=== PATIENT | female | born 1955 | race Caucasian/White ===

== ENCOUNTER 2016-09-07 14:54 | Emergency (ER) | payer BC ==
[2016-09-07 15:02] VITALS: BMI 28.3
--- NOTE | 2016-09-07 17:17 | DR.HTN ---
HPI - Time Seen Time seen: 17:10 - Primary Care Physician Primary Care Physician: BLAYNE CASTRO - Complaints Chief Complaint Doctors Comments: Patient complains of her blood pressure being elevated today at 206/105 at home with her being dizzy for the past 2-3 days. States has had problems with vertigo before and takes a pill for dizziness at times and gets light headed. States she has never had a CT of her head. states she is taking Metoprolol 50mg bid; Lisinopril 10mg; for her blood pressure from Dr. Torres in [place]. She has been having tightning in her head. She has a family history of heart disease with her father having problem at age 50. Chief Complaint:: PT C/O > B/P AND BEING DIZZY... - Reviewed Nurses Notes Reviewed: Yes - Source History Provided: Patient - Mode of Arrival Mode of Arrival: Ambulatory - Timing Onset of Chief Complaint: 09/07/16 - Severity What was the maximum recorded B/P?: 206/105 Severity: Mild - Context Circumstances: Spontaneous Onset History of: Hypertension Treatment of HTN Prior to Arrival: Taking meds as prescribed - Associated Signs and Symptoms HTN Associated Signs and Symptoms: Headache, Dizziness PMH - PMH Past Medical History: Yes Past Medical History: Hypertension Past Surgical History: Yes Past Surgical History Comment: LUMPECTOMY, PARTIAL HYSTERECTOMY, . - Family History History of Family Medical Conditions: Yes Family Medical History: Diabetes Mellitus Family Medical History Comment: HEART, DEMENTIA, - Social History Does patient currently use any type of tobacco product: No Have you used tobacco products in the last 12 months: No Type of Tobacco Use: None Does any household member use tobacco: No Alcohol Use: None Do you use any recreational Drugs:: No Lives With: Family Lives Where: Home - infectious screening In the last 2 months have you had wt loss of >10#?: NO Have you had fever, night sweats or hemotysis?: No Have you traveled outside the country in the last 6 months?: No Isolation: Standard ROS - Review of Systems Constitutional: No Symptoms Reported. negative: See HPI, Chills, Diaphoresis, Fever, Malaise, Weakness, Irritable, Fatigue, Loss of Appetite, Other Eyes: No Symptoms Reported ENTM: No Symptoms Reported. negative: See HPI, Ear Pain, Ear Discharge, Pulling on Ears, Hearing Loss, Nose Pain, Nose Discharge, Epistaxis, Nose Congestion, Mouth Pain, Mouth Swelling, Loose Teeth, Drooling, Throat Pain, Throat Swelling, Ear Foreign Body Respiratoy: No Symptoms Reported Cardiovascular: No Symptoms Reported. negative: See HPI, Chest Pain, Edema, Palpitations, Syncope, Cyanosis, Skin Mottling, Other Gastrointestinal/Abdominal: No Symptoms Reported. negative: See HPI, Abdominal Pain, Constipation, Diarrhea, Nausea, Vomiting, Food Intolerance, Other Genitourinary: No Symptoms Reported, Frequency. negative: See HPI, Discharge, Dysuria, Hematuria, Pain, Bleeding, Other Neurological: No Symptoms Reported, Dizziness. negative: See HPI, Anxiety, Depressed, Emotional Problems, Headache, Numbness, Paresthesia, Pre-existing Deficit, Seizure, Tingling, Tremors, Weakness, Problems Walking, Speech Problem , Other Musculoskeletal: No Symptoms Reported Integumentary: No Symptoms Reported. negative: See HPI, Change in Color, Change in Hair/Nails, Dryness, Lesions, Lumps, Rash, Itching, Wound, Bruises, Juandice, Other Hematologic/Lymphatic: No Symptoms Reported Endocrine: No Symptoms Reported Psychiatric: No Symptoms Reported PE - Vital Signs Vitals: Pulse Rate 56 Respiratory Rate 22 Blood Pressure 166/91 O2 Sat by Pulse Oximetry 98 - General Limitations: No Limitations General Appearance: Alert, In Distress (mild) - Head Head Exam: Normal Inspection, Atraumatic, Normocephalic - Eyes Eye exam: Normal Appearance, PERRL, EOMI. negative: Scleral Icterus, Conjunctival Injection, Nystagmus, Miosis, Mydrasis, Periorbital Swelling, Periorbital Tenderness, Other Pupils: Regular, Round: Bilateral Sclera/Conjunctival: Normal Inspection: Bilateral - ENT ENT Exam: Normal Exam, Normal Oropharynx, Mucous Membranes Moist - Neck Neck Exam: Normal Inspection, Full ROM, Trachea Midline - Chest Chest Inspection: Normal Inspection, Symmetric Chest Wall Rise - Respiratory Respiratory Exam: Normal Lung Sounds Bilat Respiratory Exam: Bilateral Clear to Auscultation - Cardiovascular Cardiovascular Exam: Regular Rate, Normal Rhythm, Normal Heart Sounds - Abdominal Exam Abdominal Exam: Normal Inspection, Normal Bowel Sounds, Soft Abdominal Tenderness: negative: RUQ, RLQ, LUQ, LLQ, Epigastrium, Suprapubic, Diffuse, Mild, Moderate, Severe, Other - Extremities Extremities Exam: Normal Inspection, Full ROM, Tenderness, Normal Capillary Refill. negative: Edema, Joint Swelling, Calf Tenderness, Other - Back Back Exam: Normal Inspection, Full ROM. negative: Tenderness, (R) CVA Tenderness, (L) CVA Tenderness, Muscle Spasm, Paraspinal Tenderness, Vertebral Tenderness, Rashes, (R) Sciatic Notch Tenderness, (L) Sciatic Notch Tendern, (R ) Straight Leg Raise, (L) Straight Leg Raise, Other - Neurologic Neurological Exam: Alert, Oriented X3, CN II-XII Intact, Reflexes Normal. negative: Normal Gait (gait not tested) Patient Oriented To: Person, Place, Time Speech: Fluid Speech Cranial Nerve Exam: EOM Function (II, III, IV, ): Normal, Facial Sensation (V) : Normal, Facial Palsy (VII): Normal, Gag reflex (XI): Normal, Spinal Accessory Function (XI): Normal, Tongue Deviation: Normal Cerebellar Function: Normal Gait Motor Strength - LUE: 5/5 Motor Strength - RUE: 5/5 Motor Strength - LLE: 5/5 Upper Motor Neuron Exam: Babinski Sign: Normal Sensory Exam Upper Extremity: Light Touch: Normal, Pin Prick: Normal, Temperature: Normal, 2 Point Discrimination: Normal Sensory Exam Lower Extremity: Light Touch: Normal, Pin Prick: Normal, Temperature: Normal DTR: bicep (L): 3+, bicep (R): 3+, Patellar (L): 3+, patellar (R): 3+ - Psychiatric Psychiatric Exam: Normal Affect, Normal Mood - Skin Skin Exam: Warm, Dry, Intact, Normal Color. negative: Rash, Cyanosis, Diaphoresis, Erythema, Pallor, Mottled, Other ROR - Labs Reviewed Laboratory Results Reviewed?: Yes (All labs and x-ray results reviewed and discussed with patient) Result Diagrams: 09/07/16 17:20 09/07/16 17:20 Laboratory: WBC 5.7 X10^3/uL (3.6-10.0) 09/07/16 17:20 RBC 4.79 X10^6/uL (3.5-5.4) 09/07/16 17:20 Hgb 13.6 g/dL (12.0-16.0) 09/07/16 17:20 Hct 39.4 % (36.0-47.0) 09/07/16 17:20 MCV 82.2 fL (80.0-100.0) 09/07/16 17:20 MCH 28.3 pg (27.0-34.0) 09/07/16 17: MCHC 34.4 g/dL (33.0-35.0) 09/07/16 17:20 RDW 12.7 % (11.6-16.5) 09/07/16 17: Plt Count 271 X10^3/uL (150.0-450.0) 09/07/16 17:20 MPV 8.0 fL (7.4-11.0) 09/07/16 17:20 Neut % 61.4 % (42.0-75.0) 09/07/16 17: Lymph % 27.8 % (21.0-51.0) 09/07/16 17: Hopkins % 8.3 % (0.0-13.0) 09/07/16 17: Eos % 1.9 % (0.9-2.9) 09/07/16 17: Baso % 0.6 % (0.2-1.0) 09/07/16 17:20 Neut # 3.5 x10^3/uL (2.2-4.8) 09/07/16 17: Lymph # 1.6 X10^3/uL (1.3-2.9) 09/07/16 17:20 Hopkins # 0.5 x10^3/uL (0.3-0.8) 09/07/16 17:20 Eos # 0.1 x10^3/uL (0.0-0.2) 09/07/16 17:20 Baso # 0.0 X10^3/uL (0.0-0.1) 09/07/16 17: Absolute Nucleated RBC 0.0 /100WBC 09/07/16 17:20 INR Target Range - 09/07/16 17:20 INR 0.98 (0.8-1.3) 09/07/16 17:20 PTT 34.1 SECONDS (22.9-36.5) 09/07/16 17:20 PTT Comment - 09/07/16 17:20 Sodium 144 mmol/L (136-145) 09/07/16 17:20 Corrected Sodium TNP 09/07/16 17:20 Potassium 4.4 mmol/L (3.5-5.1) 09/07/16 17:20 Chloride 107 mmol/L (98-107) 09/07/16 17:20 Carbon Dioxide 30.2 mmol/L (21-32) 09/07/16 17:20 BUN 16 mg/dL (7-18) 09/07/16 17:20 Creatinine 0.81 mg/dL (0.55-1.02) 09/07/16 17:20 Est GFR (MDRD) Af Amer > 60 (>60) 09/07/16 17:20 Est GFR (MDRD) Non-Af > 60 (>60) 09/07/16 17:20 Glucose 97 mg/dL (65-99) 09/07/16 17:20 Calcium 9.5 mg/dL (8.5-10.1) 09/07/16 17:20 Corrected Calcium TNP 09/07/16 17:20 Magnesium 2.0 mg/dL (1.7-2.9) 09/07/16 17:20 Total Bilirubin 0.80 mg/dL (0.2-1.0) 09/07/16 17:20 AST 44 Units/L (15-37) H 09/07/16 17:20 ALT 93 Units/L (12-78) H 09/07/16 17:20 Alkaline Phosphatase 91 Units/L (46-116) 09/07/16 17:20 Creatine Kinase 67 Units/L (26-192) 09/07/16 17:20 CK-MB (CK-2) < 1.0 ng/mL (0-4.0) 09/07/16 17:20 CK/CKMB % Calc 1.5 % (<4) 09/07/16 17:20 Troponin I < 0.02 ng/mL (0-1.5) 09/07/16 17:20 Total Protein 7.6 g/dL (6.4-8.2) 09/07/16 17:20 Albumin 4.0 g/dL (3.4-5.0) 09/07/16 17:20 Globulin 3.6 g/dL (2.5-4.5) 09/07/16 17:20 Albumin/Globulin Ratio 1.1 Ratio (1.1-2.1) 09/07/16 17:20 - XRAY XRAY Interpreted by: Radiologist (CT head: No definit evidence of acute intracranial process. Moderate microvascular white matter ischemic changes) - EKG Rate: 55 Panacea: Normal Rhythm: SB Block: None Hypertrophy: None ST: Nonsp - Diagnosis Discharge Problem: Essential hypertension, Vertigo, Abnormal liver enzymes, Bradycardia - Discharge Plan Disposition: HOME, SELF-CARE Condition: Stable Prescriptions: Lisinopril [ZESTRIL *] 20 mg PO DAILY #30 tab Meclizine HCl [ANTIVERT 25 MG *] 25 mg PO TID PRN #30 tab PRN Reason: MOTION SICKNESS - Follow ups/Referrals Follow ups/Referrals: JAMES CISNEROS [Primary Care Provider] - 3 days - Instructions Instructions: Hypertension, Bradycardia
[2016-09-07 17:30] LABS: BASOPHILS % (AUTO) 0.6 % (0.2-1.0); EOSINOPHILS # (AUTO) 0.1 x10^3/uL (0.0-0.2); EOSINOPHILS % (AUTO) 1.9 % (0.9-2.9); HEMATOCRIT 39.4 % (36.0-47.0); HEMOGLOBIN 13.6 g/dL (12.0-16.0); LYMPHOCYTES # (AUTO) 1.6 X10^3/uL (1.3-2.9); LYMPHOCYTES % (AUTO) 27.8 % (21.0-51.0); MEAN CORPUSCULAR HEMOGLOBIN 28.3 pg (27.0-34.0); MEAN CORPUSCULAR HGB CONC 34.4 g/dL (33.0-35.0); MEAN CORPUSCULAR VOLUME 82.2 fL (80.0-100.0); MONOCYTES # (AUTO) 0.5 x10^3/uL (0.3-0.8); MONOCYTES % (AUTO) 8.3 % (0.0-13.0); NEUTROPHILS # (AUTO) 3.5 x10^3/uL (2.2-4.8); NEUTROPHILS % (AUTO) 61.4 % (42.0-75.0); PLATELET COUNT 271 X10^3/uL (150.0-450.0); RED BLOOD COUNT 4.79 X10^6/uL (3.5-5.4); RED CELL DISTRIBUTION WIDTH 12.7 % (11.6-16.5); WHITE BLOOD COUNT 5.7 X10^3/uL (3.6-10.0)
[2016-09-07 17:44] LABS: BLOOD UREA NITROGEN 16 mg/dL (7-18); CALCIUM 9.5 mg/dL (8.5-10.1); CARBON DIOXIDE 30.2 mmol/L (21-32); CHLORIDE 107 mmol/L (98-107); CREATININE 0.81 mg/dL (0.55-1.02); GLUCOSE 97 mg/dL (65-99); SODIUM 144 mmol/L (136-145); TROPONIN I < 0.02 ng/mL (0-1.5); eGFR BLACK RACES > 60 (>60); eGFR NON BLACK RACES > 60 (>60)
[2016-09-07 17:48] LABS: ALANINE AMINOTRANSFERASE 93 Units/L (12-78); ALKALINE PHOSPHATASE 91 Units/L (46-116); ASPARTATE AMINO TRANSFERASE 44 Units/L (15-37); CREATINE KINASE 67 Units/L (26-192); CREATINE KINASE MB < 1.0 ng/mL (0-4.0); TOTAL PROTEIN 7.6 g/dL (6.4-8.2)
[2016-09-07 17:50] LABS: CKMB % 1.5 % (<4)
--- NOTE | 2016-09-07 18:17 | CT ---
CT HEAD WITHOUT CONTRAST CLINICAL HISTORY: 61-year-old female with hypertension, vertigo. COMPARISON: None. TECHNIQUE: Multiple, non-contrasted axial CT images were obtained from the skull base to the crania l vertex. FINDINGS: There are no abnormal intra- or extra-axial fluid collections, midline shift, or mass effe ct. [place]-white differentiation is normal. Global cortical involutional changes are present that are within normal limits for the patient's stated age. The ventricular system is mildly enlarged but com mensurate with the degree of sulcal prominence. Periventricular and supraventricular white matter hy podensity is present that is nonspecific in appearance, but most likely to represent microvascular i schemic changes. Atherosclerotic vascular calcification is present within the carotid siphons and di stal vertebral arteries. The imaged paranasal sinuses, mastoid air cells, and tympanic spaces are clear. IMPRESSION: 1. No definite evidence of an acute intracranial process. 2. Moderate microvascular white matter ischemic changes, with associated volume loss. Reported By:
[2016-09-07] MEDS ORDERED: ANTIVERT TAB 25 MG PO ONE (18:54)
[2016-09-07] MEDS ORDERED: LASIX PO STA (19:00)
[2016-09-07] MEDS ORDERED: NORVASC TAB 5 MG PO ONE (19:00)
[2016-09-07] MEDS ORDERED: ANTIVERT TAB 25 MG ONE (19:02)
[2016-09-07] MEDS ORDERED: NORVASC TAB 5 MG ONE (19:03)
[2016-09-07] MEDS ORDERED: LASIX ONE (19:03)
--- NOTE | 2016-09-07 19:53 | RAD ---
EXAM: Chest X-ray INDICATION: Hypertension COMPARISION: No prior TECHNIQUE: AP, single view FINDINGS: The lungs are clear in the lung volumes are within normal limits. No pleural effusion or pneumothora x. The cardiac silhouette and mediastinum are normal. The regional skeleton is intact. IMPRESSION: Normal Chest X-Ray Reported By:
[2016-09-07 21:13] VITALS: BP 154/97
== END 2016-09-07 21:13 | disposition home or self-care (01) ==
LOC: ER 15:06
DX: I10 Essential (primary) hypertension (principal); R42 Dizziness and giddiness; R74.8 Abnormal levels of other serum enzymes; R00.1 Bradycardia, unspecified
CPT/HCPCS: 36415; 70450; 71010; 80053; 82550; 82553; 83735; 84484; 85025; 85610; 85730; 93005; 93010; 99283

== ENCOUNTER 2018-11-12 13:10 | Observation (INO) ==
--- NOTE | 2018-11-12 13:45 | DR.H&P ---
H&P - History & Physical for Day of: H&P Date: 11/12/18 - Chief Complaint Chief Complaint: chest pain - History of Present Illness History of Present Illness: 63 WF DIRECT ADMIT FROM DR MIX OFFICE WITH CO CHEST PAIN. PT STATES SHE HAD EPISODE OF LEFT JAW PAIN, SEVERE WITH SUDDEN ONSET THAT RADIATED DOWN LEFT SIDE OF NECK INTO CHEST. CHEST PAIN RADIATING TO MIDBACK. PT CO WEAKNESS WITH SWEATING AND FEELING FLUSHED. PT HAD EKG IN OFFICE WITH BRADYCARDIA, BP 166/92. 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 PT DENIES ANY N/V/D WITH EPISODE. PT HAS PMH OF HTN, KIM, HYPERLIPIDEMIA AND FAMILY HX OF CAD. PT ADMITTED FOR TREATMENT AND EVALUATION OF ACUTE ILLNESS. - Past Medical History Past Medical History: Arthritis, Hypertension, Sleep Apnea - Family History Family Medical History: Diabetes Mellitus - Social History Does patient currently use any type of tobacco product: No Have you used tobacco products in the last 12 months: No Type of Tobacco Use: None Does any household member use tobacco: No Alcohol Use: None Drug Use: None Risks, benefits, and alternatives of opioids discussed: No - Medications Home Medications: No Known Drug Allergies Allergy (Verified 09/07/16 14:55) - Review of Systems Constitutional: Weakness Eyes: No Symptoms Reported ENT: No Symptoms Reported Respiratory: No Symptoms Reported Cardiovascular: Chest Pain, Light Headedness Gastrointestinal: No Symptoms Reported Genitourinary: No Symptoms Reported Musculoskeletal: Back Pain (MID BACK PAIN) Skin: No Symptoms Reported Neurological: No Symptoms Reported - Physical Exam Vital Signs: Blood Pressure [Left Arm] 154/97 Blood Pressure 119/76 Oriented: Normal Eyes: Normal Ear: Normal Nose: Normal Throat: Normal Respiratory: Clear Throughout Cardiovascular: Bradycardia. negative: Murmur, Edema : Normal Auscultation: Bowel Sounds: Normal Palpation: Normal Tenderness: RUQ, Epigastric, Mild Skin: Diaphoresis Musculoskeletal: Normal Psychiatric: Normal Speech Pattern: Clear, Appropriate - Assessment/Plan (1) Chest pain Status: Acute Plan: ADMIT, SERIAL CE AND EKG. CXR ON ADMISSION, PRN SUPPLEMENTAL O2. ASA THERAPY, BP CONTROL, STATIN THERAPY. VERIFY HOME MEDICATION (2) Essential hypertension Status: Acute (3) Bradycardia Status: Acute (4) Atypical chest pain Status: Acute Plan: GB US/ HIDA. NPO, IV HYDRATION - Allergies Allergies/Adverse Reactions: Allergies Allergy/AdvReac Type Severity Reaction Status Date / Time No Known Drug Allergies Allergy Verified 09/07/16 14:55
[2018-11-12 14:05] LABS: BASOPHILS % (AUTO) 0.5 % (0.2-1.0); EOSINOPHILS # (AUTO) 0.1 x10^3/uL (0.0-0.2); EOSINOPHILS % (AUTO) 1.1 % (0.9-2.9); HEMATOCRIT 38.1 % (36.0-47.0); HEMOGLOBIN 13.2 g/dL (12.0-16.0); LYMPHOCYTES # (AUTO) 1.6 X10^3/uL (1.3-2.9); LYMPHOCYTES % (AUTO) 28.5 % (21.0-51.0); MEAN CORPUSCULAR HGB CONC 34.8 g/dL (33.0-35.0); MEAN CORPUSCULAR VOLUME 83.2 fL (80.0-100.0); MEAN PLATELET VOLUME 7.8 fL (7.4-11.0); MONOCYTES # (AUTO) 0.4 x10^3/uL (0.3-0.8); MONOCYTES % (AUTO) 6.3 % (0.0-13.0); NEUTROPHILS # (AUTO) 3.6 x10^3/uL (2.2-4.8); NEUTROPHILS % (AUTO) 63.6 % (42.0-75.0); PLATELET COUNT 249 X10^3/uL (150.0-450.0); RED BLOOD COUNT 4.57 X10^6/uL (3.5-5.4); RED CELL DISTRIBUTION WIDTH 13.6 % (11.6-16.5); WHITE BLOOD COUNT 5.7 X10^3/uL (3.6-10.0)
[2018-11-12 14:14] LABS: BLOOD UREA NITROGEN 23 mg/dL (7-18); CALCIUM 9.5 mg/dL (8.5-10.1); CHLORIDE 103 mmol/L (98-107); CREATININE 0.93 mg/dL (0.55-1.02); SODIUM 141 mmol/L (136-145); TROPONIN I < 0.02 ng/mL (0-1.5); eGFR NON BLACK RACES > 60 (>60)
[2018-11-12 14:19] LABS: ALANINE AMINOTRANSFERASE 35 Units/L (12-78); ALKALINE PHOSPHATASE 97 Units/L (46-116); ASPARTATE AMINO TRANSFERASE 21 Units/L (15-37); CKMB % 1.7 % (<4); CREATINE KINASE 60 Units/L (26-192); CREATINE KINASE MB < 1.0 ng/mL (0-4.0); TOTAL PROTEIN 7.8 g/dL (6.4-8.2)
[2018-11-12 14:20] VITALS: BMI 28.3
[2018-11-12 15:10] LABS: BILIRUBIN,URINE NEGATIVE (NEGATIVE); BLOOD/HEMOGLOBIN,URINE NEGATIVE (NEGATIVE); GLUCOSE, URINE NEGATIVE (NEGATIVE); KETONES,URINE NEGATIVE (NEGATIVE); LEUKOCYTE ESTERASE ,URINE NEGATIVE (NEGATIVE); NITRITES,URINE NEGATIVE (NEGATIVE); PROTEIN,URINE NEGATIVE (NEGATIVE); UROBILINOGEN,URINE NORMAL (NORMAL)
[2018-11-12 15:16] LABS: APPEARANCE,URINE CLEAR (CLEAR); COLOR,URINE STRAW (YELLOW)
[2018-11-12] MEDS ORDERED: XANAX PO PRN (15:18)
--- NOTE | 2018-11-12 16:15 | US ---
HISTORY: Chest pain radiating to left arm and jaw Study: Gallbladder ultrasound Comparison: No Technique: Multiple aquino scale and color flow Doppler images of the right upper quadrant were obtained. Findings: The liver in size. There is diffuse hepatic steatosis present.. No focal intraparenchymal mass or intrahepatic biliary ductal dilatation can be observed. The gallbladder fails to demonstrate evidence for cholelithiasis or layering sludge. The common bile duct is unremarkable measuring 2.8 mm. No pericholecystic fluid or gallbladder wall thickening can be observed. Hepatic and portal venous flow directions are normal. The right kidney appears normal in size without focal parenchymal mass or nephrolithiasis. The right kidney measurers 5 x 5 x 12 cm. Cortical thickness is 1.2 cm. Resistive index is 0.47 which is normal.. No hydronephrosis or perirenal fluid can be observed. The pancreas is normal. IVC is normal. IMPRESSION: Hepatic steatosis. Liver is normal in size. No ductal ectasia or mass is seen. Normal gallbladder. Reported By:
--- NOTE | 2018-11-12 16:40 | RAD ---
HISTORY: Acute chest pain radiating into left arm and jaw. Prior history hypertension. Study: Single-view chest Comparison: 09/07/2016. Technique: Today's examination is considerably more expiratory with accentuation of the transverse cardiac diameter and crowding of bronchovascular markings. Findings: Trachea is midline. Heart size is likely upper normal with aortic uncoiling. Lungs and pleural spaces are clear. No infiltrate, CHF, pleural fluid or pneumothorax is seen. No acute osseous changes are identified. IMPRESSION: Hypertensive configuration. Expiratory chest without acute abnormality. Reported By:
[2018-11-12] MEDS ORDERED: TORADOL 15 MG VIAL IVP PRN (17:08)
[2018-11-12] MEDS: NS 1000 ML 1,000 ML IV SCH (17:21)
[2018-11-12] MEDS: PROTONIX INJ 40 MG VIAL IVP SCH (17:21)
[2018-11-12 19:53] LABS: CKMB % 1.8 % (<4); CREATINE KINASE 55 Units/L (26-192); CREATINE KINASE MB < 1.0 ng/mL (0-4.0); TROPONIN I < 0.02 ng/mL (0-1.5)
[2018-11-12] MEDS: LOPRESSOR TAB 25 MG PO SCH (20:04)
[2018-11-12] MEDS ORDERED: CELEXA PO SCH (21:00)
[2018-11-13 01:56] LABS: CKMB % 1.9 % (<4); CREATINE KINASE 52 Units/L (26-192); CREATINE KINASE MB < 1.0 ng/mL (0-4.0); TROPONIN I < 0.02 ng/mL (0-1.5)
[2018-11-13] MEDS: NS 1000 ML 1,000 ML IV SCH (05:13)
[2018-11-13 06:40] LABS: BASOPHILS % (AUTO) 0.5 % (0.2-1.0); EOSINOPHILS # (AUTO) 0.1 x10^3/uL (0.0-0.2); EOSINOPHILS % (AUTO) 1.6 % (0.9-2.9); HEMATOCRIT 35.4 % (36.0-47.0); HEMOGLOBIN 12.3 g/dL (12.0-16.0); LYMPHOCYTES # (AUTO) 1.9 X10^3/uL (1.3-2.9); LYMPHOCYTES % (AUTO) 34.9 % (21.0-51.0); MEAN CORPUSCULAR HEMOGLOBIN 28.8 pg (27.0-34.0); MEAN CORPUSCULAR HGB CONC 34.8 g/dL (33.0-35.0); MEAN CORPUSCULAR VOLUME 82.7 fL (80.0-100.0); MEAN PLATELET VOLUME 7.7 fL (7.4-11.0); MONOCYTES # (AUTO) 0.4 x10^3/uL (0.3-0.8); MONOCYTES % (AUTO) 7.3 % (0.0-13.0); NEUTROPHILS % (AUTO) 55.7 % (42.0-75.0); PLATELET COUNT 221 X10^3/uL (150.0-450.0); RED BLOOD COUNT 4.29 X10^6/uL (3.5-5.4); WHITE BLOOD COUNT 5.3 X10^3/uL (3.6-10.0)
[2018-11-13 06:41] LABS: ALANINE AMINOTRANSFERASE 31 Units/L (12-78); ALBUMIN 3.3 g/dL (3.4-5.0); ALKALINE PHOSPHATASE 83 Units/L (46-116); ASPARTATE AMINO TRANSFERASE 19 Units/L (15-37); BLOOD UREA NITROGEN 21 mg/dL (7-18); CALCIUM 8.6 mg/dL (8.5-10.1); CARBON DIOXIDE 28.2 mmol/L (21-32); CHLORIDE 106 mmol/L (98-107); COR CA(FOR HYPOALB) 9.2 mg/dL (8.5-10.1); SODIUM 142 mmol/L (136-145); TOTAL PROTEIN 6.6 g/dL (6.4-8.2); eGFR NON BLACK RACES > 60 (>60)
[2018-11-13] MEDS ORDERED: ZESTRIL TAB 20 MG ONE (07:02)
[2018-11-13] MEDS ORDERED: ZESTRIL TAB 20 MG PO SCH (09:00)
[2018-11-13] MEDS: LOPRESSOR TAB 25 MG PO SCH (09:25)
[2018-11-13] MEDS: PROTONIX INJ 40 MG VIAL IVP SCH (09:26)
[2018-11-13 09:33] LABS: CREATINE KINASE 50 Units/L (26-192); CREATINE KINASE MB < 1.0 ng/mL (0-4.0); TROPONIN I < 0.02 ng/mL (0-1.5)
[2018-11-13 09:38] LABS: CHOL/HDL RATIO 2.3 (0.0-5.0)
[2018-11-13 14:32] VITALS: BP 165/89
--- NOTE | 2018-11-13 15:25 | NM ---
HISTORY: Abdominal pain Study: Nuclear medicine HIDA scan with ejection fraction Comparison: Gallbladder ultrasound 11/12/2018 Technique: Multiple scintigraphic images of the abdomen were obtained the intravenous administration of 5.4 mCi of technetium labeled Choletec. Following distention of the gallbladder with radiotracer, the patient drank 8 oz of Ensure Plus to simulate a fatty meal. An estimated gallbladder ejection fraction was calculated based on the physiologic response of this ingestion. Findings: Homogeneous uptake of radiotracer is seen throughout the liver. This intrabiliary ductal system is observed normally. The common hepatic and common bile duct grossly appear unremarkable with normal biliary-bowel transit. The gallbladder is observed to fill normally. After the patient drank Ensure, a gallbladder ejection fraction of 2% (normal > 35%) is observed. IMPRESSION: 1. Normal hepatobiliary imaging scan. 2. Findings of gallbladder hypokinesia, with an ejection fraction of 2%. Reported By:
== END 2018-11-13 15:32 | disposition home or self-care (01) ==
LOC: ICU
PROVIDERS: ADMIT Internal Medicine; ATTEND Internal Medicine
DX: E78.2 Mixed hyperlipidemia; R07.89 Other chest pain; I10 Essential (primary) hypertension; R68.84 Jaw pain; R00.1 Bradycardia, unspecified; R94.31 Abnormal electrocardiogram [ECG] [EKG]; M54.2 Cervicalgia
CPT/HCPCS: 36415; 71010; 71045; 76705; 78227; 80053; 80061; 81003; 82550; 82553; 84484; 85025; 93005; 96367; A4222; C9113; G0378; J7030